=== PATIENT | male | born 1970 | race African-American/Black ===

== ENCOUNTER 2018-09-13 15:27 | Inpatient (IN) | payer BC ==
[~2018-09-13] VITALS: Ht 177.8 cm; Wt 130.5 kg
[~2018-09-13 15:27] MED LIST: IBUPROFEN 800800 M1 PO; NORCO 5-325 TA1 EACH PO
[2018-09-13 15:29] VITALS: BP 118/76
[2018-09-13 15:57] LABS: HEMOGLOBIN 14.2 gm/dL (14.0-18.0); RDW 13.3 % (10.5-14.5)
[2018-09-13 15:59] LABS: HEMATOCRIT 41.3 % (42.0-52.0); MCH 29.7 pg (26.0-34.0); MCHC 34.3 g/dL (28.0-37.0); MCV 86.6 fL (80.0-100.0); PLATELET COUNT 327 thou/uL (150-400); RBC 4.78 mil/uL (4.50-6.00)
[2018-09-13 16:02] LABS: WBC 1.2 thou/uL (4.0-11.0)
[2018-09-13 16:08] LABS: CALCIUM 9.8 mg/dL (8.5-10.1); CREATININE 1.1 mg/dL (0.7-1.3); POTASSIUM 4.1 mmol/L (3.5-5.1)
[2018-09-13] MEDS ORDERED: VITAMIN B-12500 MCG PO (16:14)
[2018-09-13] MEDS ORDERED: VITAMIN D1000 UNI2 PO (16:14)
[2018-09-13 16:32] LABS: ANISOCYTOSIS 1+
[2018-09-13 17:07] LABS: URINE CLARITY CLEAR; URINE COLOR YELLOW
[2018-09-13 17:08] LABS: URINE BILIRUBIN NEGATIVE (Negative); URINE BLOOD NEGATIVE (Negative); URINE GLUCOSE-RANDOM* NEGATIVE (Negative); URINE KETONES NEGATIVE (Negative); URINE LEUKOCYTES-REFLEX NEGATIVE (Negative); URINE NITRITE-REFLEX NEGATIVE (Negative); URINE PROTEIN (DIPSTICK) NEGATIVE (Negative); URINE UROBILINOGEN 0.2 E.U./dl (0.2-1.0)
--- NOTE | 2018-09-13 17:12 | NUR ---
ISOLATION CART SET UP OUTSIDE ROOM TO BE A STOPPING POINT. NOTIFIED FAMILY THAT ANYONE THAT COMES INTO THE ROOM HAS TO BE WEARING A MASK. FAMILY VERBALIZED UNDERSTANDING.
[2018-09-13 18:59] VITALS: BP 134/69
[2018-09-13 20:20] VITALS: BP 112/62
[2018-09-13 20:35] VITALS: BP 110/73
--- NOTE | 2018-09-13 20:35 | NUR ---
PT ARRIVED ON UNIT APPROX 2019 FROM ED INTO ROOM 419. PT A&OX4, RR 20 AND REGULAR, O2 97%ON RA, BP 112/62, HR 90. ORIENTATED PT TO ROOM, CALL LIGHT, FALL PRECAUTIONS. FAMILY AT BEDSIDE. PT DENIES PAIN. WILL CONTINUE TO ASSESS AND MONITOR PT.
[2018-09-14 04:10] VITALS: BP 97/58
[2018-09-14 05:46] LABS: HEMATOCRIT 34.8 % (42.0-52.0); HEMOGLOBIN 12.3 gm/dL (14.0-18.0); MCH 30.5 pg (26.0-34.0); MCHC 35.3 g/dL (28.0-37.0); MCV 86.2 fL (80.0-100.0); PLATELET COUNT 264 thou/uL (150-400); RBC 4.04 mil/uL (4.50-6.00); RDW 13.4 % (10.5-14.5)
[2018-09-14 05:49] LABS: CALCIUM 9.1 mg/dL (8.5-10.1); PHOSPHORUS 2.9 mg/dL (2.5-4.9); POTASSIUM 3.7 mmol/L (3.5-5.1)
[2018-09-14 05:56] LABS: WBC 1.3 thou/uL (4.0-11.0)
[2018-09-14 07:39] VITALS: BP 111/62
[2018-09-14 09:15] LABS: ATYPICAL LYMPHS 6 %; PLATELET ESTIMATE NORMAL
[2018-09-14 19:04] VITALS: BP 125/76
[2018-09-14 19:11] LABS: IgA 133 mg/dL (90-386); IgG 1209 mg/dL (700-1600); IgM 185 mg/dL (20-172)
--- NOTE | 2018-09-14 20:28 | NUR ---
ASSUMED CARE OF PT AT 0700. ASSESSMENT COMPLETED AND CHARTED. PT IN PROTECTIVE PRECAUTIONS. C/O HEADACHE, TYLENOL GIVEN ORDERED. INTERMITTENT COUGH NOTED. DENIES N/V/D. DENIES OTHER PAIN. NO SOA OR CHEST PAIN. ROOM AIR. PT HAS "SORE" OR LESION ON TONGUE NOTED. NO OTHER SKIN CONCERNS. ACHS DISCONTINUED PER PHYSICIAN ORDER, PT IS NOT DIABETIC. FAMILY AT BEDSIDE THROUGHOUT DAY. PT IS CURRENTLY RESTING IN BED. NO OTHER CHANGE IN STATUS.
[2018-09-15 04:05] VITALS: BP 142/64
--- NOTE | 2018-09-15 04:38 | NUR ---
PT IS AFEBRILE ALL SHIFT, CONTINUE TO HAVE HEADACHE, TYLENOL PO AND ICE PACK GIVEN, LUNGS CLEAR. PT ABLE TO TURN AND REPOSITION SELF. PT ON ROOM AIR, PT STILL ON REVERSE ISOLATION, IN THE ROOM, ENC. TO DRINK MORE FLUIDS FOR HIS FEVER AND HEADACHE, CALL LIGHT WITHIN REACHED, VOIDING PER URINAL, NO OTHER C/O NOTED, MONITORED.
[2018-09-15 06:14] LABS: HEMOGLOBIN 12.1 gm/dL (14.0-18.0)
[2018-09-15 06:17] LABS: HEMATOCRIT 35.9 % (42.0-52.0); MCH 29.5 pg (26.0-34.0); MCHC 33.7 g/dL (28.0-37.0); MCV 87.6 fL (80.0-100.0); PLATELET COUNT 250 thou/uL (150-400); RDW 13.4 % (10.5-14.5)
[2018-09-15 06:20] LABS: WBC 1.3 thou/uL (4.0-11.0)
--- NOTE | 2018-09-15 06:24 | NUR ---
WBC CONSISTENT WITH YESTERDAY, 1.3, CALLED TO Lexi CORTEZ, NO FURTHER ORDERS.
[2018-09-15 07:15] VITALS: BP 110/59
[2018-09-15 08:32] LABS: ATYPICAL LYMPHS 9 %
[2018-09-15 08:33] LABS: PLATELET ESTIMATE NORMAL
--- NOTE | 2018-09-15 09:05 | HC ---
[facility] [place] [address] CONSULTATION Name: JOSE CHIANG Daniela Room #: 418-P [facility] IN M.R.#: [id number] Admission: 09/13/18 Attend Phys: Preston Perez Discharge: Date of : 70 Report #: [id number] THIS REPORT FOR: //name// CC: VAMSHI Celaya DATE OF SERVICE: 09/14/2018 ATTENDING PHYSICIAN: Dr. Preston Perez. REASON FOR CONSULTATION: Fever, sore throat, URI. Chronic sinusitis. HISTORY OF PRESENT ILLNESS: The patient is a 48-year-old man, unwell since sometime in July when he came down with some upper respiratory type symptoms, for which he was evaluated at [facility], where he underwent chest x-ray, nasopharyngeal swab. He was advised that his influenza test was negative and was discharged home with symptomatic treatment. The patient continued to have intermittent fevers and upper respiratory type symptoms with sore throat, sore tongue from a canker sore and nasal congestion from his chronic sinusitis. He visited with urgent care, he was prescribed some oral antibiotics, which he finished but did not get improvement from those. The patient's mother reports that her grandson is affected with bad form of influenza, and the patient may have caught these. I did discuss with Dr. Vamshi Celaya, her primary physician, about the patient's circumstances, and she advised me the patient did have previous influenza despite influenza vaccination. Significantly, the patient's past medical history is that he was diagnosed to have aplastic anemia, which was treated with cyclosporine with improvement of his platelets and hemoglobin, which were said to be low, but he remained neutropenic and profoundly so. He was evaluated at [facility] for possible bone marrow transplantation, but his brother was said not to be having compatible jeans with his. On account of these, no bone marrow transplant was done. The patient appears to have had some IVIG infusions to which he developed adverse reaction as well. PAST MEDICAL HISTORY: Aplastic anemia diagnosed several years ago, for which he has received cyclosporine and adverse reaction to the IVIG infusion. The cyclosporine was slowly tapered and discontinued by Dr. Hernandez, his hematology oncologist. Discussing with Dr. Vamshi Celaya, I learned that the patient may have prediabetes as well as some elevation of lipids. The patient required a cardiac ablation for supraventricular tachycardia, and he has been on a beta yadiel that was recently discontinued on account of low blood pressures. The patient was found to have some borderline low vitamin B12 levels as well. The patient had surgery to left rays, question carpal tunnel and left elbow as well. [address] [address] CONSULTATION Name: JOSE CHIANG Room #: 418-P [facility] IN M.R.#: [id number] Admission: 09/13/18 Attend Phys: Preston Perez Discharge: Date of : 70 Report #: [id number] SOCIAL HISTORY: , grown children. Grandchildren affected with viral URI. DRUG ALLERGIES: AUGMENTIN. CURRENT MEDICATIONS: The patient is currently on treatment with cefepime 1 gram IV every 12 hours. P.r.n. hydrocodone bitartrate one tablet q.4 h P.r.n. acetaminophen. P.r.n., zolpidem tartrate, polyethylene glycol daily, p.r.n. sublingual nitroglycerin and intravenous ondansetron. The patient did receive filgrastim 300 mcg x 1 subq today. He did receive a loading dose of vancomycin and 2 grams of cefepime on admission. Intravenous fluids were discontinued. REVIEW OF SYSTEMS: Fevers. Upper airways congestion as well as sore throat and sore tongue from canker sore. Near syncopal episode. Episode of low blood pressure at Dr. Vamshi Celaya's office and also here where his blood pressure was 97/58. PHYSICAL EXAMINATION: GENERAL: A well-developed, not toxic looking man. VITAL SIGNS: Temperature 102.5, pulse 118, respirations 18, BP 118/76 yesterday. Temperature maximum today is 99.9, his blood pressure was then 97/58. His height is 5 feet 10 inches, weight 287 pounds. HEENMT: No tenderness over frontal or maxillary sinuses. There is a canker sore on the tip of the tongue. Pharynx is normal. NECK: Supple. No thyromegaly or lymphadenopathy. LYMPH NODE: No axillary, supraclavicular or cervical adenopathy. LUNGS: Clear. HEART: S1, S2. No gallop or murmur. ABDOMEN: Soft, no masses or megaly. GENITALIA AND RECTAL: Deferred. EXTREMITIES: No clubbing, cyanosis. NEUROLOGIC: Grossly within normal limits. LABORATORY DATA: Sodium 134, potassium 3.7, BUN 8, creatinine 1, glucose 122, albumin 3 g/dL. Lactic acid normal. WBC 1300, hemoglobin 12.3 g/dL, platelets 264,000. The white blood cell count differential revealed 1% segmented neutrophil, 82% lymphocytes, 11% monocytes. The urinalysis is negative. MICROBIOLOGY DATA: Urine culture pending. Blood cultures negative and nasopharyngeal swab negative for rapid influenza A and B. RADIOLOGY EVALUATION: Chest x-ray revealed no acute cardiopulmonary process. Sinus x-rays revealed thickening of the mucoperiosteum of maxillary sinuses bilaterally. [facility] [address] [place] [address] CONSULTATION Name: JOSE CHIANG Room #: 418-P [facility] IN M.R.#: [id number] Admission: 09/13/18 Attend Phys: Preston Perez Discharge: Date of : 70 Report #: [id number] ASSESSMENT: 1. History of aplastic anemia. 2. Severe neutropenia. 3. Possible upper viral respiratory tract infection. 4. Canker sore, tongue. 5. History of cardiac ablation. 6. History of positive rheumatoid factor. SUGGESTIONS: Recommend, for time being, let us continue with coverage with cefepime, though I do not believe the patient is affected with bacterial infection. Recommend obtaining a serum IgG, IgA, IgM and IgE levels. ESR, CRP and procalcitonin were also ordered. We will obtain an upper respiratory virus panel by PCR is in order. Dr. Perez, thank you for requesting my suggestions in the care of your patient. <ELECTRONICALLY SIGNED> By: Fercho Howard MD 09/15/18 0905 [id number] Fercho Howard MD /nt
--- NOTE | 2018-09-15 12:50 | NUR ---
High nutrition screening risk for pt with mild wt change and decreased appetite. States eating better and likes to drink Ensure-will order. Low nutrition risk at this time
--- NOTE | 2018-09-15 18:30 | NUR ---
PT ASSESSED AT START OF SHIFT. PT AFEBRILE TODAY. FEELS SOME BETTER BUT HAVING NASAL SINUS CONJESTION. ORDER FOR NASAL SPRAY. PT REQUESTED NURSE TO CALL DR. LAUREN AT [facility] TO CALL DR. PERALES. MESSAGE LEFT ON NURSE LINE.
[2018-09-15 20:36] VITALS: BP 122/65
[2018-09-16 03:50] VITALS: BP 122/61
[2018-09-16 05:35] LABS: HEMOGLOBIN 12.2 gm/dL (14.0-18.0); MCV 88.1 fL (80.0-100.0)
[2018-09-16 05:37] LABS: HEMATOCRIT 35.6 % (42.0-52.0); MCH 30.2 pg (26.0-34.0); MCHC 34.2 g/dL (28.0-37.0); PLATELET COUNT 239 thou/uL (150-400); RBC 4.05 mil/uL (4.50-6.00); RDW 13.3 % (10.5-14.5)
[2018-09-16 05:41] LABS: WBC 1.4 thou/uL (4.0-11.0)
--- NOTE | 2018-09-16 06:15 | NUR ---
PT WAS FEBRILE AT 100.7 AT THE START OF SHIFT, TYLENOL GIVEN AND FEVER RESOLVED. PT C/O NASAL STUFFINESS AND SOME HEADACHE. NASAL SPRAY HELPED. PT IS UP AD MAGDIEL IN ROOM. SPOUSE BY BEDSIDE AND IS VERY SUPPORTIVE.VOIDING OKAY. IVF INFUSING.APPEARS TO HAVE SLEPT THROUGHT THE NIGHT.
[2018-09-16 06:34] LABS: PLATELET ESTIMATE NORMAL
[2018-09-16 07:15] VITALS: BP 118/60
[2018-09-16] MEDS ORDERED: FLONASE 0.05%50 MCG NASAL (10:26)
[2018-09-16 10:42] VITALS: BP 118/60
--- NOTE | 2018-09-16 11:27 | NUR ---
RECEIVED PT CARE APPROX 0730. A/O. DENIES PAIN. C/O CONGESTION. NO NV. NO NOTED SOA. DC INSTRUCTIONS GIVEN TO PT. PT VERBALIZED UNDERSTANDING. PT TO DC HOME WITH SELF CARE.
[2018-09-16 23:06] LABS: ADENOVIRUS Negative (Negative); INFLUENZA A Negative (Negative); INFLUENZA B Negative (Negative); METAPNEUMOVIRUS Negative (Negative); PARAINFLUENZA 1 Negative (Negative); PARAINFLUENZA 2 Negative (Negative); PARAINFLUENZA 3 Negative (Negative); RHINOVIRUS Negative (Negative); RSV A Negative (Negative); RSV B Negative (Negative)
== END 2018-09-16 11:48 | disposition home or self-care (01) | DRG 810 ==
LOC: ER 15:27 → 4E 17:26 → EROBS 17:26 → 4E 20:13
PROVIDERS: Emergency Medicine; Internal Medicine Infectious Disease; ADMIT Hospitalist
DX: D70.9 Neutropenia, unspecified (principal); K12.0 Recurrent oral aphthae; J32.9 Chronic sinusitis, unspecified; J06.9 Acute upper respiratory infection, unspecified; Z79.899 Other long term (current) drug therapy; Z88.1 Allergy status to other antibiotic agents; Z88.8 Allergy status to other drugs, medicaments and biological substances; Z87.891 Personal history of nicotine dependence
CPT/HCPCS: 10183; 10783